=== PATIENT | female | born 1965 | race Caucasian/White ===

== ENCOUNTER → 2017-09-11 07:44 | Outpatient (CLI) | payer MEDICARE, SELFPAY ==
[2017-09-11 08:34] LABS: Hemoglobin A1c 6.7 % (4.2-6.3)
== END ==
PROVIDERS: Family Provider Internal Medicine; PCP Internal Medicine; Visit Provider Internal Medicine
DX: E11.65 Type 2 diabetes mellitus with hyperglycemia (principal)
CPT/HCPCS: 36415; 83036

== ENCOUNTER → 2017-12-12 07:52 | Outpatient (CLI) | payer MEDICARE, SELFPAY ==
[2017-12-12 10:06] LABS: Hemoglobin A1c 7.3 % (4.2-6.3)
== END ==
PROVIDERS: Family Provider Internal Medicine; PCP Internal Medicine; Visit Provider Internal Medicine
DX: Z79.899 Other long term (current) drug therapy (principal)
CPT/HCPCS: 36415; 83036

== ENCOUNTER → 2018-03-14 07:39 | Outpatient (CLI) | payer MEDICARE, SELFPAY ==
[2018-03-14 09:33] LABS: Hemoglobin A1c 9.5 % (4.2-6.3)
[2018-03-14 09:53] LABS: Vitamin B12 413 pg/mL (211-911)
== END ==
PROVIDERS: Family Provider Internal Medicine; PCP Internal Medicine; Visit Provider Internal Medicine
DX: E11.42 Type 2 diabetes mellitus with diabetic polyneuropathy (principal)
CPT/HCPCS: 36415; 82607; 83036

== ENCOUNTER 2018-10-15 10:07 | Emergency (ER) | payer MEDICARE, SELFPAY ==
[2018-10-15 10:08] VITALS: BP 131/72; PULSE 80; RESP 19; TEMP 36.8; O2SAT 95; BMI 27.1
--- NOTE | 2018-10-15 10:25 | EKG12_ITS ---
Test Reason : CHEST OTHER Blood Pressure : / mmHG Vent. Rate : 075 BPM Atrial Rate : 075 BPM P-R Int : 138 ms QRS Dur : 074 ms QT Int : 392 ms P-R-T Axes : 033 018 043 degrees QTc Int : 437 ms Normal sinus rhythm Normal ECG Confirmed by CHRISTOPHER AGARWAL, MARK ([id number]), tape editor ILIA SHETH ([id number]) on 10/18/2018 10:36:01 AM Referred By: CAROL Confirmed By:MARK WHITE MD
--- NOTE | 2018-10-15 10:25 | CT_ITS ---
STUDY: CTA CHEST REASON FOR EXAM: Female, 53 years old. Left-sided chest pain since yesterday. RADIATION DOSAGE (If Supplied By Facility): CTDIvol = ( 9.77 ) mGy, DLP = ( 357.04 ) mGycm TECHNIQUE: The examination was performed with the intravenous administration of Isovue 370 75 IV. Post-processing of the angiographic images was performed, with multiplanar reformation and 3D reconstruction. Individualized dose optimization techniques were used for this CT. COMPARISON: None. FINDINGS: Normal enhancement of the main pulmonary artery and right and left pulmonary arteries. Normal enhancement of the bilateral peripheral pulmonary arteries. There is no demonstrated pulmonary embolism. There is atherosclerotic calcification of the aortic arch with tortuosity. There is no demonstrated aortic dissection. There are calcifications of the coronary arteries. There are visualized mediastinal lymph nodes, which are within normal size limits, and with normal morphology. Normal hilar regions. Normal visualized trachea and bronchi. The lungs are well expanded. Mild increased linear markings at the lung bases atelectasis and/or scarring. Normal pleura. Normal chest wall structures. Normal osseous structures. The patient is status post cholecystectomy. There is 1.2 cm hypodensity in the left adrenal gland suggestive of a small adrenal adenoma. CT/CTA Chest W/WO Contrast IMPRESSION: There is no evidence of pulmonary arterial embolism. Mild degree of increased markings at the lung bases suggestive of atelectasis and/or scarring. Electronically Signed: Alessandro Ludwig, at 13:01 EDT , Service support ,
[2018-10-15 11:36] VITALS: BP 107/75; PULSE 61; RESP 12; O2SAT 95
[2018-10-15] MEDS: 0.9% Normal Saline 1,000 ML 125 ML IV (11:38)
[2018-10-15 11:51] LABS: Absolute Lymphocyte Count 3.44 X10^3/ul (0.83-4.51); Absolute Neutrophil Count 10.2 X10^3/uL (2.0-7.7); Basophil# 0.03 X10^3/uL; Basophil% 0.2 % (0-1); Eosinophil# 0.07 X10^3/uL; Eosinophils% 0.5 % (0-5); Hematocrit 48.3 % (37-47); Hemoglobin 16.4 g/dl (12.0-15.0); Lymphocyte # 3.44 X10^3/ul (4.0); Lymphocyte % 23.5 % (19-41); Mean Corpuscular Hgb 30.4 pg (27.0-32.0); Mean Corpuscular Volume 89.6 fL (81-99); Mean Platelet Vol. 11.3 fl (6.2-12.0); Monocyte# 0.92 X10^3/uL; Monocyte% 6.3 % (0-10); Neutrophil # 10.15 X10^3/uL (2.7-7.7); Neutrophil % 69.2 % (47-70); Platelet Count 196 K/mm3 (150-450); RBC Distribution Width CV 14.3 % (11.6-14.6); RBC Distribution Width SD 47.1 fl (35.1-43.9); Red Blood Count 5.39 M/mm3 (4.2-5.4); White Blood Count 14.7 K/mm3 (4.4-11.0)
[2018-10-15 11:58] LABS: POSITIVE COUNT NO; POSITIVE DIFFERENTIAL NO; POSITIVE MORPHOLOGY NO
[2018-10-15 12:06] LABS: Anion Gap 11 (5-15); BUN 7 mg/dL (7-18); BUN/Creat Ratio 12.8 RATIO (10-20); Calcium,Total 8.7 mg/dL (8.5-10.1); Chloride 108 mmol/L (98-107); Creatinine, Serum 0.55 mg/dL (0.55-1.02); EST Glomerular Filtration Rate 123 mL/min (>60); Est Glom Filt Rate - Afr Amer 149 mL/min (>60); Estimated Creatinine Clearance 83.01 ml/min; Glucose 89 mg/dL (74-106); Potassium 3.3 mmol/L (3.5-5.1); Sodium Level 143 mmol/L (136-145)
--- NOTE | 2018-10-15 12:13 | ED.DCSUM_ITS ---
- ER Visit Summary Date of Service: 10/15/18 Chief Complaint: [] History of Present Illness: The patient is a 53 F [pain to the left chest presents the emergency department with 5-day history of discomfort in her left chest. Patient states that pain is worse with movement and with coughing. Patient has had a cough that is been nonproductive. She denies any rashes. Patient states initially she noticed the pain when she was seeing Dr. Best for an injection and when she sat on the table it felt as though there was a pop in her left chest. Patient denies any fevers. She denies recent travel or surgery. She denies any hemoptysis. Patient denies any radiation of the pain. Patient states she could not sleep at all last night due to the pain.] Physical Examination: [HEENT-PERRLA, EOMI. Cranial nerves II through XII grossly intact. TMs clear. Mucous membranes moist. No adenopathy. Cardiovascular-regular rate and rhythm without murmur or ectopy Lungs-clear to auscultation, chest wall stable without crepitus or subcu emphysema. Patient has tenderness palpation over the left chest wall just inferior to the left breast and lateral to the breast. That reproduces her pain. There is no subcu emphysema noted. There is no ecchymosis or bruising noted. There are no rashes noted. Abdomen-normoactive bowel sounds, soft, nontender, no rebound or rigidity, no peritoneal signs. Extremities-intact ?4, normal range of motion, normal pulses, atraumatic] Test Results: [EKG obtained arrival shows sinus rhythm with a ventricular rate of 75 bpm with no acute I segment changes. CBC with differential showed a white count of 14.7, hemoglobin 16, hematocrit 48, platelets 196. Chemistries were unremarkable other than a slightly depressed potassium at 3.3. Troponin was less than 0.015.] CTA of the chest was obtained which showed no rib fractures, no PEs, essentially nothing acute. Emergency Department Course and Treatment: [Patient was medicated with morphine and Zofran.] Treatment Plan: [Patient will be given a prescription for [place] and advised to follow-up with primary care physician within next 3-5 days.] Disposition: [Discharged home in stable condition] Impression: [Chest wall strain] This note was generated with [employer] software. It may contain incorrect words, spelling, and punctuation that were not noted in review of the chart prior to signing ED Disposition - Plan for ED Patient: Referrals: Mariella Hruley MD [Primary Care Provider] -
[2018-10-15] MEDS: Ondansetron 4 MG/2 ML Vial IV (12:51)
[2018-10-15] MEDS: Morphine 4 MG/ML Syringe IV ×2 (12:51→14:17)
[2018-10-15 13:36] VITALS: BP 111/68; PULSE 67; RESP 18; O2SAT 91
--- NOTE | 2018-10-15 14:05 | ED.DEP ---
ED Disposition - Plan for ED Patient: Instructions: ED Strain Chest Wall Prescriptions: Hydrocodone Bitart/Apap 5-325 [Sentinel 5MG-325MG] 1 tab PO Q4H PRN PRN 2 Days #20 tab PRN Reason: Pain Referrals: Mariella Hurley MD [Primary Care Provider] - 3-5 Days
[2018-10-15 14:19] VITALS: BP 119/69; PULSE 72; RESP 16; O2SAT 96
== END 2018-10-15 14:22 | disposition home or self-care (01) ==
PROVIDERS: Emergency Provider Emergency Medicine; Family Provider Internal Medicine; PCP Internal Medicine
DX: S29.011A Strain of muscle and tendon of front wall of thorax, initial encounter (principal); Z72.0 Tobacco use; X50.1XXA Overexertion from prolonged static or awkward postures, initial encounter; Y93.89 Activity, other specified; Y92.531 Health care provider office as the place of occurrence of the external cause; Y99.8 Other external cause status
CPT/HCPCS: 71275; 80048; 84484; 85025; 93005; 96361; 96374; 96375; 96376; 99285; J7030; Q9967; A4216; J2405

== ENCOUNTER → 2018-11-12 | Outpatient (CLI) | payer MEDICARE, SELFPAY ==
[2018-10-15 10:08] VITALS: BMI 27.1
--- NOTE | 2018-11-12 12:04 | RAD_ITS ---
STUDY: X-RAY - BILATERAL RIBS WITH CHEST REASON FOR EXAM: Female, 53 years old. Cough TECHNIQUE - RIBS: 4 view(s) of the ribs. TECHNIQUE - CHEST: Single PA view of the chest. COMPARISON: None. FINDINGS - RIBS : Normal visualized ribs without a demonstrated fracture. FINDINGS - CHEST: The lungs are clear and expanded. There is no demonstrated pleural abnormality. Normal size heart. Normal mediastinum and jan. Normal visualized pulmonary arteries. Normal visualized aortic arch and descending thoracic aorta. Normal visualized thoracic spine. Normal visualized ribs, clavicles, and shoulders. There is no demonstrated abnormality of the visualized soft tissue structures of the upper abdomen. RAD/Ribs Edgardo Min 4V w/PA Chest IMPRESSION: RIBS: Normal x-ray examination of the bilateral ribs. CHEST: Normal x-ray examination of the chest. Electronically Signed: Daren Dee MD at 12:40 EDT , Service support ,
== END | disposition home or self-care (01) ==
PROVIDERS: Family Provider Internal Medicine; PCP Internal Medicine; Referring Provider Anesthesiology Pain Medicine; Visit Provider Anesthesiology Pain Medicine
DX: R07.9 Chest pain, unspecified (principal)
CPT/HCPCS: 71111

== ENCOUNTER → 2018-12-10 | Outpatient (CLI) | payer MEDICARE, SELFPAY ==
--- NOTE | 2018-12-10 13:15 | RAD_ITS ---
STUDY: X-RAY - THORACIC SPINE REASON FOR EXAM: Female, 53 years old. Back pain TECHNIQUE: 3 view(s) of the thoracic spine were obtained. COMPARISON: CT scan bone windows 10/15/2018 FINDINGS: Normal kyphosis of the thoracic spine. There is no substantial scoliosis. There is demineralization of the thoracic spine with mild endplate spondylosis. Normal disc space heights. Aorta appears tortuous partially calcified. RAD/Thoracic Spine 3 Views IMPRESSION: Degenerative change. No visualized evidence of an acute fracture. Electronically Signed: Myra Andre MD at 1:05 EDT Tel , Service support ,
== END | disposition home or self-care (01) ==
LOC: RAD 13:13
PROVIDERS: Family Provider Internal Medicine; PCP Internal Medicine; Referring Provider Anesthesiology Pain Medicine; Visit Provider Anesthesiology Pain Medicine
DX: M54.6 Pain in thoracic spine (principal)
CPT/HCPCS: 72072

== ENCOUNTER 2018-12-19 08:35 | Outpatient (RCR) | payer MEDICARE, SELFPAY ==
--- NOTE | 2018-12-19 10:00 | HP.PTEVAL ---
Patient's Visit Information FATUMA GONSALVES is a 53 year old F referred to Physical Therapy by Rose Best MD with a diagnosis of Back Pain. 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 Focus on core s/s and postural education- US as needed - Subjective Findings: Describes the painPatient reports that her back has been bothering her for along time. Has been working with Dr. Best for a long time. She had injections yesterday in her spine both the lumbar and thoracic region. In 2000 she had a horse kick her and they thought she would stay in he coma forever. Back pain was worse since the accident. Has been through a lot since then. Pain is located along the bra line. Does have pain in the left leg with numbness and tingling in the left leg to the toes. Tingling happens a few times a week. Describes the pain as dull and achy. Agg: sitting for long periods of time, making her bed leaning forward. Worst: 8/10 collapsed on her bed. Best: 5/10 Eases: if she sits laying back. No N/T in her hands. No change or loss of bowel or bladder. Sleep: not disturbed. Has had x-rays but no MRI. X-ray shows degeneration. Work: does not currently working. PMHx: accident 2000, HTN, cholesterol, DM. Meds: HTN meds, cholesterol med, 2 sugar pills per day, melatonin, sleeping pill - Objective Posture: FH. RS- does correct with verbal and tactile cues but does not maintain. Gait: no deviation noted. Observation: in sitting position-constant movement- never comfortable. SLS: unable but does weight shift with UE A. HR/TR: able. Sensation: WFL. Reflexes: WFL patella and achilles. ROM: WFL but reports pain with lumbar flexion. Flex: HS: moderate, Gastroc: moderate. Strength: Core: poor, Hip: 4-/5 throughout, Knee: 4+/5, Ankle: 5/5. Palpation: tender along paraspinals from sacrum to C7-T1 junction. Special Test: dural signs: positive bilaterally - Goals Goal 1:: Patient will be I with HEP and progression Goal Time Frame: 4-6 Weeks Goal 2:: Patient will maintain proper posture t/o tx session to demo increased core s/s. Goal Time Frame: 4-6 Weeks Goal 3:: Patient will sit with good posture for 1 min without moving around Goal Time Frame: 4-6 Weeks Goal 4:: Patinet will report 0/10 pain for 1 week Goal Time Frame: 4-6 Weeks - Rehabilitation Potential Physical Therapy Diagnosis: Patient presents with hypomobility- she has decreased strength, flex and muscular endurnace leading to poor posture and increased pain with ADL's. Rehabilitation Potential: Fair - Anticipated Interventions Patient/Client Instruction: Educate patient on: Benefits of Fitness Program Therapeutic Exercise to Include: Strength training, Endurance training, Balance training, Coordination, Agility training, Body mechanics, Postural training, Flexibilty training, Dynamic Lumbar Stabilization For the Purpose of:: To improve muscle performance and motor function TENS: Yes Cryotherapy (ice pack, ice massage): Yes Thermo therapy (hot pack): Yes Ultrasound (thermal/non thermal): Yes Thank you for the opportunity to evaluate your patient. For Medicare and Medicare HMO plans, please review the plan of care and approve it. It will need to be FAXED BACK to us at [phone] for Medicare purposes. For Medicare only, by signing this I certify the plan of care. Please let me know if there are questions or concerns regarding this plan of care. Physician Signature: Date:
--- NOTE | 2019-04-09 13:30 | HP.PT.NRP ---
HP - Discharge Summary (1) - Patient Information FATUMA GONSALVES was seen in my office for initial evaluation on 12/19/18. The following Plan of Care was established for this patient: Initial Frequency: 2x /Week Initial Duration: 4 Weeks - Anticipated Interventions Patient/Client Instruction: Educate patient on: Benefits of Fitness Program Therapeutic Exercise to Include: Strength training, Endurance training, Balance training, Coordination, Agility training, Body mechanics, Postural training, Flexibilty training, Dynamic Lumbar Stabilization For the Purpose of:: To improve muscle performance and motor function TENS: Yes Cryotherapy (ice pack, ice massage): Yes Thermo therapy (hot pack): Yes Ultrasound (thermal/non thermal): Yes This patient was last seen in our office . Pertinent comments regarding their Physical therapy will appear below: Patient has not attended therapy in over 6 weeks- appropriate for d/c at this time- return to MD for further evaluation as needed. At this point I will be discontinuing this patient from physical therapy. I would be happy to see this patient again in the future if found appropriate by the physician. Thank you! VALE MaT
== END 2018-12-19 19:00 | disposition home or self-care (01) ==
LOC: PT 08:35
PROVIDERS: Family Provider Internal Medicine; PCP Internal Medicine; Referring Provider Anesthesiology Pain Medicine; Visit Provider Anesthesiology Pain Medicine
DX: M54.9 Dorsalgia, unspecified (principal)
CPT/HCPCS: 97110; 97161

== ENCOUNTER → 2019-02-04 | Outpatient (CLI) | payer MEDICARE, SELFPAY ==
--- NOTE | 2019-02-04 09:30 | RAD_ITS ---
STUDY: X-RAY - UNILATERAL RIBS ( LEFT ) WITH CHEST REASON FOR EXAM: Female, 53 years old. Fall last Monday, pain TECHNIQUE - RIBS: 3 view(s) of the ribs. TECHNIQUE - CHEST: Single frontal view of the chest. COMPARISON: 11/12/2018 FINDINGS - RIBS: Normal visualized ribs without a demonstrated fracture. FINDINGS - CHEST: The lungs are clear and expanded. There is no demonstrated pleural abnormality. Normal size heart. Normal mediastinum and jan. Normal visualized pulmonary arteries. Normal visualized aortic arch and descending thoracic aorta. Normal visualized thoracic spine. Normal visualized ribs, clavicles, and shoulders. There is no demonstrated abnormality of the visualized soft tissue structures of the upper abdomen. RAD/Ribs Unil 2V No CXR IMPRESSION: RIBS: Normal x-ray examination of the ribs. CHEST: Normal x-ray examination of the chest. Electronically Signed: Demetrio Bahena MD at 12:38 EDT Tel , Service support ,
== END | disposition home or self-care (01) ==
LOC: RAD 09:28
PROVIDERS: Family Provider Internal Medicine; PCP Internal Medicine; Referring Provider Anesthesiology Pain Medicine; Visit Provider Anesthesiology Pain Medicine
DX: R07.81 Pleurodynia (principal); W19.XXXA Unspecified fall, initial encounter
CPT/HCPCS: 71100

== ENCOUNTER → 2019-09-02 08:54 | Outpatient (CLI) | payer MEDICARE, MEDICAID, SELFPAY ==
--- NOTE | 2019-09-02 09:15 | MRI_ITS ---
STUDY: MRI BRAIN WITHOUT CONTRAST REASON FOR EXAM: Female, 54 years old. ataxia, nystagmus, frequent falls, head injury -- TBI 2000, patient has no details of injury TECHNIQUE: Standardized multiplanar fat and water weighted pulse sequences were obtained. COMPARISON: None. FINDINGS: There is mild cerebral atrophy with widening of the extra-axial spaces and ventricular dilatation. There are a limited number of small white matter hyperintensities, distributed throughout the deep white matter tracts of the cerebral hemispheres, consistent with mild chronic white matter ischemic changes. Areas of encephalomalacia and gliosis in both frontal lobes, the left temporal lobe, and the right hemisphere of the cerebellum consistent with chronic infarcts. There is no evidence for recent intracranial ischemia or other cause of cytotoxic edema on diffusion weighted imaging (DWI). Normal T2* images of the brain without demonstrated susceptibility artifact. There is no demonstrated hemosiderin stain. Normal bilateral basal ganglia. Normal thalami. There is no extra-axial fluid accumulation. Normal flow voids within the major intracranial circulation suggesting patency by spin echo criteria. Normal sella turcica, pituitary gland, infundibular stalk, optic chiasm and hypothalamus. Normal tectal plate and pineal gland. Normal midbrain, amada and medulla. Normal cerebellum. Normal basal cisterns. Normal bilateral temporal bones. Normal bilateral internal auditory canals. There is an ocular lens implant the left globe. Normal right globe. The intraorbital contents otherwise are normal. Normal visualized paranasal sinuses. Normal calvarium and skull base. Normal visualized soft tissue structures. Normal visualized upper cervical spine. MRI/Brain without Contrast IMPRESSION: Involutional changes of the brain, as described above. Multiple chronic infarcts. No acute infarct. Electronically Signed: Mannie Barreto MD at 10:33 EST Tel , Service support ,
== END ==
PROVIDERS: PCP Internal Medicine
DX: S09.90XS Unspecified injury of head, sequela (principal); H55.00 Unspecified nystagmus; R27.0 Ataxia, unspecified
CPT/HCPCS: 70551

== ENCOUNTER → 2020-03-06 | Outpatient (CLI) | payer MEDICARE, MEDICAID, SELFPAY ==
--- NOTE | 2020-03-06 12:52 | CT_ITS ---
STUDY: LOW DOSE CT LUNG CANCER SCREENING REASON FOR EXAM: Female, 55 years old. LUNG SCREEN, CURRENT SMOKER, 47 YRS X 2 PPD RADIATION DOSAGE (If Supplied By Facility): CTDIvol = ( 1.70 ) mGy, DLP = ( 48.30 ) mGycm TECHNIQUE: No contrast was administered. Low dose technique was utilized (average mAS-38 and kVp 120). 1.25 mm axial source images with a slice interval of 1.25-mm were reconstructed in lung windows. 2.5 mm axial source images with a slice interval of 2.5-mm were reconstructed in lung windows. 5.0 mm axial source images with a slice interval of 5.0-mm were reconstructed in soft tissue windows. Nodule measured using lung windows on PACS and/or independent workstation with automated measurement of minimum and maximum diameter. Nodule measurement reported as average diameter rounded to the nearest whole number. Growth is defined as an increase ins size of greater than 1.5 mm. COMPARISON: Comparison is made with study 10/15/2018. NODULES: None. Endobronchial lesion: None Aorta: Calcific plaques. Coronary arteries: Coronary artery calcification. Heart: Unremarkable. Pulmonary artery: Unremarkable. Mediastinal nodes: Unremarkable. Other chest and abdominal findings: Degenerative changes of the thoracic spine. CT/Low Dose CT Lung Screening IMPRESSION: Lung-RADS category 2 - Continue annual screening with LDCT in 12 months. IMPORTANT NOTES FOR USE: ACR Lung-RADS Version 1.0 Assessment Categories Release Date: December 02, 2013 Category: Coded 0-4 bases on nodule(s) with highest degree of suspicion. Negative screen is defined as categories 1 and 2; a positive screen is defined as categories 3 and 4. Category 3 and 4A nodules that are unchanged on interval CT should be coded as category 2, and individuals returned to screening in 12 months. Category 4X: Category 3 or 4 nodules with additional imaging findings that increase the suspicion of lung cancer, such as spiculation, GGN that doubles in size in 1 year, enlarged lymph notes, etc. Category Modifiers: S (significant finding unrelated to lung cancer) and C (prior history of treated lung cancer) may be added to the 0-4 Lung-RADS Electronically Signed: Alessandro Ludwig, at 13:54 EDT , Service support ,
== END | disposition home or self-care (01) ==
LOC: CT 12:45
PROVIDERS: PCP Internal Medicine; Referring Provider Internal Medicine Hematology & Oncology; Visit Provider Internal Medicine Hematology & Oncology
DX: F17.210 Nicotine dependence, cigarettes, uncomplicated (principal); R06.2 Wheezing; Z12.2 Encounter for screening for malignant neoplasm of respiratory organs
CPT/HCPCS: G0297

== ENCOUNTER 2020-04-29 14:04 | Outpatient (RCR) | payer MEDICARE, MEDICAID, SELFPAY | END 2020-04-29 19:00 | disposition home or self-care (01) | LOC: PT 14:04 | PROVIDERS: PCP Internal Medicine | DX: R69 Illness, unspecified (principal) ==

== ENCOUNTER → 2020-05-19 | Outpatient (CLI) | payer MEDICARE, SELFPAY ==
[2020-05-19 13:29] VITALS: BMI 27.4
== END | disposition home or self-care (01) ==
PROVIDERS: PCP Internal Medicine; Referring Provider Physician Assistant Surgical; Visit Provider Physician Assistant Surgical
DX: J02.9 Acute pharyngitis, unspecified (principal)
CPT/HCPCS: 87081